=== PATIENT | female | born 1950 | race Two or more races ===

== ENCOUNTER 2017-06-28 22:48 | Emergency (ER) | payer OTHER ==
[2017-06-28 22:56] VITALS: BP 135/74
--- NOTE | 2017-06-28 23:03 | PHYS DOC ---
Past Medical History Past Medical History: No Pertinent History Past Surgical History: No Surgical History Alcohol Use: Rarely Drug Use: None Adult General Chief Complaint Chief Complaint: LACERATION/AVULSION HPI HPI Patient is a 67 year old female who presents with left thumb laceration. Patient states through family members she was cutting a roaster and cut herself accidentally. Patient is right-handed. Review of Systems Review of Systems Constitutional: Denies fever or chills [] Musculoskeletal: Denies back pain or joint pain [] Integument: left thumb laceration Neurologic: Denies headache, focal weakness or sensory changes [] All other systems were reviewed and found to be within normal limits, except as documented in this note. Current Medications Current Medications Current Medications Medications (Trade) Dose Ordered Sig/Lyndon Start Time Stop Time Status Last Admin Dose Admin Diphtheria/ Tetanus/Acell Pertussis (Boostrix) 0.5 ml ONCE ONCE 06/28/17 23:45 06/28/17 23:46 UNV Lidocaine/ Epinephrine (Xylocaine 1%-Epi 1:100,000) 20 ml 1X ONCE 06/28/17 23:15 06/28/17 23:16 DC 06/28/17 23:15 20 ML Allergies Allergies Allergies Coded Allergies Type Severity Reaction Last Updated Verified No Known Drug Allergies 06/28/17 No Physical Exam Physical Exam Constitutional: Well developed, well nourished, no acute distress, non-toxic appearance. [] Skin: Warm, left lateral thumb has a laceration approximately 3 cm long along the PIP joint. There is no obvious tendon involvement. Full range of motion to the left thumb including flexion and extension of the PIP and DIP joints. +2 left radial pulse. Adequate radial sensation to the left thumb. Cap refill less than 2 seconds the left thumb. Back: No tenderness, no CVA tenderness. [] Extremities: No tenderness, no cyanosis, no clubbing, ROM intact, no edema. [] Neurologic: Alert and oriented X 3, normal motor function, normal sensory function, no focal deficits noted. [] Psychologic: Affect normal, judgement normal, mood normal. [] Current Patient Data Vital Signs Vital Signs Date Time Temp Pulse Resp B/P (MAP) Pulse Ox O2 Delivery O2 Flow Rate FiO2 06/28/17 22:56 97.9 80 18 97 Room Air 97.9 EKG EKG [] Radiology/Procedures Radiology/Procedures Indication: Left thumb laceration Procedure: The patient was placed in the appropriate position and anesthesia around the laceration was 1% buffered lidocaine with epinephrine to help stop the bleeding, the laceration was explored for foreign objects once the bleeding had stopped, no foreign object was found. The area was cleaned with 200 ML of normal saline and Betadine. The laceration was closed with 6 interrupted sutures using 4. 0 Ethilon. The wound was covered with nonstick dressing. Total repaired wound length: Approximately 3 cm Other Items: none The patient tolerated the procedure well Complications: none Course & Med Decision Making Course & Med Decision Making Pertinent Labs and Imaging studies reviewed. (See chart for details) Patient has left thumb laceration that was closed by me as noted in procedures. Tetanus updated. Provided wound care instructions as well as return precautions. Left thumb x-rays interpreted by Dr. Badillo were negative for any acute findings. Dragon Disclaimer Dragon Disclaimer This electronic medical record was generated, in whole or in part, using a voice recognition dictation system. Departure Departure Impression: Primary Impression: Laceration of left thumb Disposition: HOME, SELF-CARE Condition: STABLE Patient Instructions: Laceration Care, Adult Additional Instructions: You were seen for left finger laceration. Keep the area clean and dry. Apply Neosporin to the area twice a day. Monitor the area for signs and symptoms of infection including increased redness warmth or drainage from the return to the ED if they occur. Follow-up with your doctor in 7-10 days or the emergency room for suture removal. Scripts Neomy Sulf/Bacitrac Zn/Poly (NEOSPORIN OINTMENT) 28.3 Gm Oint...g. 1 APPLIC TP BID, #1 MISC Prov: SAURABH WORTHY APRN 06/28/17 Tramadol Hcl (ULTRAM) 50 Mg Tablet 1 TAB PO Q6HRS, #30 TAB Prov: SAURABH WORTHY APRN 06/28/17 Cephalexin (CEPHALEXIN) 500 Mg Tablet 1 TAB PO QID, #40 TAB Prov: SAURABH WORTHY APRN 06/28/17 Problem Qualifiers Primary Impression: Laceration of left thumb Encounter type: initial encounter Damage to nail status: without damage Foreign body presence: unspecified Qualified Codes: S61.012A - Laceration without foreign body of left thumb without damage to nail, initial encounter SAURABH WORTHY APRN Jun 28, 2017 23:03
[2017-06-28] MEDS ORDERED: LIDOCAINE 1%/EPI 1:100,000 20 ML VIAL. INJ ONE (23:15)
[2017-06-28] MEDS ORDERED: NEOM28.32 TP (23:33)
[2017-06-28] MEDS ORDERED: CEPH500T PO (23:33)
[2017-06-28] MEDS ORDERED: TRAM-48 PO (23:33)
[2017-06-28] MEDS ORDERED: DIPHTH,PERTUSS(ACELL),TET TOX 0.5 ML DISP.SYRIN. VAX IM ONE (23:45)
--- NOTE | 2017-06-29 10:14 | RAD ---
Left thumb, 3 views, 06/28/2017: History: Thumb laceration There is a small cortical lucency along the dorsal aspect of the proximal end of the proximal phalanx suggesting a small fracture. An overlying soft tissue shadow is less likely. No major fracture line extending across the width of the bone is seen. No other bony abnormality is detected. IMPRESSION: Probable small nondisplaced cortical fracture involving the proximal end of the proximal phalanx.
== END 2017-06-28 23:52 | disposition home or self-care (01) ==
LOC: ER 22:48
DX: S61.012A Laceration without foreign body of left thumb without damage to nail, initial encounter (principal); Y28.8XXA Contact with other sharp object, undetermined intent, initial encounter; Y93.89 Activity, other specified; Y99.8 Other external cause status; Y92.89 Other specified places as the place of occurrence of the external cause
CPT/HCPCS: 12002; 73140; 90471; 90715; 99284; J3490

== ENCOUNTER 2020-09-03 23:55 | Emergency (ER) | payer OTHER ==
[~2020-09-03] VITALS: Ht 160 cm; Wt 72.5 kg
[~2020-09-03 23:55] MED LIST: CEPH500T PO; NEOM28.32 TP; TRAM-48 PO
--- NOTE | 2020-09-04 01:05 | RAD ---
PQRS Compliance Statement: One or more of the following individualized dose reduction techniques were utilized for this examinat ion: 1. Automated exposure control 2. Adjustment of the mA and/or kV according to patient size 3. Use of iterative reconstruction technique CT MAXILLOFACIAL WITHOUT CONTRAST 09/04/2020 12:39 AM Indication: Right facial swelling COMPARISON: None available. TECHNIQUE: Multiple axial CT images of the maxilla facial structures were obtained without intravenou s contrast. Coronal and sagittal reformats are provided. FINDINGS: Visualized portions of the brain parenchyma are normal. Orbits are normal in appearance. Globes are s pherical and contour. No intraconal or extraconal soft tissue mass is identified. Is mild mucosal thi ckening of ethmoid air cells. There is a small mucus retention cyst in the left maxillary sinus. Mild mucosal thickening of the right maxillary sinus. Nasal septum is predominantly midline. Ostiomeatal units are widely patent. No osseous erosions are identified. Mild mucosal thickening of the sphenoid sinuses. Temporomandibular joints are normal in appearance. Parotid and submandibular glands are norm al in appearance. Hot Die Press Feeder space is intact. And oral cavity and sublingual space are intact. No pat hologically enlarged cervical lymph nodes. No significant skin thickening or subcutaneous edema. No a bscess is identified. IMPRESSION: Mild mucosal plantar changes of the paranasal sinuses. No air fluid levels or osseous erosion. Needle septum is midline. Ostiomeatal units are patent. No significant subcutaneous edema or facial abscess. Electronically signed by: Amparo Kelley MD (09/04/2020 1:02 AM) [facility]
--- NOTE | 2020-09-04 01:18 | ED.ADGEN ---
Past Medical History Past Medical History: No Pertinent History Past Surgical History: Hip Replacement, Other Additional Past Surgical Histo: R HIP REPLACEMENT (MANY YEARS AGO) Smoking Status: Never Smoker Alcohol Use: Rarely Drug Use: None General Adult EDM: Chief Complaint: DENTAL PROBLEM HPI: HPI: Patient is a 70-year-old female who presents to the emergency room complaining of right cheek swelling and pain. She states this started 2 days ago and has some erythema. She denies any kind of dental pain. She has not had any kind of fevers. She does not have any difficulty talking or chewing. She states the pain has progressively gotten worse. She has never had anything like this previously. She denies any, earache. She has not been ill recently. Review of Systems: Review of Systems: Complete ROS is negative unless otherwise documented in HPI Allergies: Allergies: Allergies Coded Allergies Type Severity Reaction Last Updated Verified No Known Drug Allergies 06/28/17 No Physical Exam: PE: General: Awake, alert, NAD. Well Nourished, well hydrated. Cooperative HEENT: Atraumatic, EOMI, PERRL, airway patent, moist oral mucosa, right cheek: 3x3 cm area of swelling with tenderness, mild erythema, no dental cavities or swelling Neck: Supple, trachea midline Respiratory: CTA bilaterally, normal effort, no wheezing/crackles CV: RRR, no murmur, cap refill <2 GI: Soft, nondistended, nontender, no masses MSK: No obvious deformities Skin: Warm, dry, intact Neuro: A&O x3, speech NL, sensory and motor grossly intact, no focal deficits Psych: Normal affect, normal mood, not suicidal or homicidal Current Patient Data: Vital Signs: Vital Signs Date Time Temp Pulse Resp B/P (MAP) Pulse Ox O2 Delivery O2 Flow Rate FiO2 09/04/20 00:05 97.3 73 20 146/65 (92) 98 Room Air 97.3 EKG: EKG: [] Heart Score: Risk Factors: Risk Factors: DM, Current or recent (<one month) smoker, HTN, HLP, family history of CAD, obesity. Risk Scores: Score 0 - 3: 2.5% MACE over next 6 weeks - Discharge Home Score 4 - 6: 20.3% MACE over next 6 weeks - Admit for Clinical Observation Score 7 - 10: 72.7% MACE over next 6 weeks - Early Invasive Strategies Radiology/Procedures: Radiology/Procedures: [] Course & Med Decision Making: Course & Med Decision Making Pertinent Labs and Imaging studies reviewed. (See chart for details) Patient 70-year-old female presents to the emergency room with some erythema and swelling to the right cheek. This does not appear to be dental. Is likely that she has a salivary gland infection. CT of the face will be ordered to rule out other pathology. CT does not show any other pathology. Exam consistent with sialoadenitis. Will place on Augmentin. Discussed using sour candy to help with pain. Patient's test results and vitals while in the ED were fully reviewed and discussed with the patient. Patient is stable and at this time does not need admission to the hospital. We have discussed strict return precautions and the importance of following up with their Primary Care Physician. Patient stated understanding and was given an opportunity to ask any questions. Patient is in agreement with plan. Dragon Disclaimer: Dragon Disclaimer: This electronic medical record was generated, in whole or in part, using a voice recognition dictation system. Departure Departure Impression: Primary Impression: Sialoadenitis Disposition: 01 DC HOME SELF CARE/HOMELESS Condition: STABLE Referrals: UNKNOWN PCP NAME (PCP) Patient Instructions: Sialadenitis, Extended Version Scripts Amoxicillin/Potassium Clav (AUGMENTIN 875-125 TABLET) 1 Each Tablet 1 TAB PO Q12HR for 7 Days, #14 TAB Prov: ALECIA KUMAR MD 09/04/20 ALECIA KUMAR MD Sep 04, 2020 01:18
[2020-09-04] MEDS ORDERED: AMOX1TAB61 PO (01:23)
[2020-09-04 01:32] VITALS: BP 105/53
== END 2020-09-04 01:32 | disposition home or self-care (01) ==
LOC: ER 23:55
DX: K11.20 Sialoadenitis, unspecified (principal)
CPT/HCPCS: 70486; 99284-25

== ENCOUNTER 2021-12-15 11:54 | Emergency (ER) | payer OTHER ==
[~2021-12-15] VITALS: Ht 162.6 cm; Wt 75.0 kg
[~2021-12-15 11:54] MED LIST changes: +AMOX1TAB61 PO
[2021-12-15] MEDS ORDERED: ASPIRIN CHEWABLE 81 MG TABLET. PO ONE (12:30)
[2021-12-15] MEDS ORDERED: LIDO:MAALOX 1:1 20 ML SINGLE DOSE. SWSW ONE (12:45)
[2021-12-15] MEDS ORDERED: LIDO:MAALOX 1:1 20 ML SINGLE DOSE. ONE (12:46)
[2021-12-15 13:00] LABS: BASO # 0.1 x10^3/uL (0.0-0.2); BASO % 1 % (0-3); EOS # 0.5 x10^3/uL (0.0-0.7); EOS % 6 % (0-3); HEMATOCRIT 42.9 % (36.0-47.0); HEMOGLOBIN 14.3 g/dL (12.0-15.5); LYMPH # 3.6 x10^3/uL (1.0-4.8); LYMPH % 42 % (24-48); MEAN CORPUSCULAR HEMOGLOBIN 29 pg (25-35); MEAN CORPUSCULAR HGB CONC 33 g/dL (31-37); MEAN CORPUSCULAR VOLUME 86 fL (79-100); MONO # 0.6 x10^3/uL (0.0-1.1); MONO % 7 % (0-9); NEUT # 3.8 x10^3/uL (1.8-7.7); NEUT % 44 % (31-73); PLATELET COUNT 277 x10^3/uL (140-400); RED BLOOD COUNT 5.01 x10^6/uL (3.50-5.40); RED CELL DISTRIBUTION WIDTH 12.7 % (11.5-14.5); WHITE BLOOD COUNT 8.6 x10^3/uL (4.0-11.0)
[2021-12-15 13:11] LABS: GFR 54.3; POTASSIUM 4.6 mmol/L (3.5-5.1)
[2021-12-15 13:16] LABS: ALBUMIN 3.9 g/dL (3.4-5.0); TOTAL BILIRUBIN 0.3 mg/dL (0.2-1.0)
--- NOTE | 2021-12-15 13:29 | RAD ---
XR CHEST 1V History: Reason: epigastric pain / Spl. Instructions: / History: Comparison: None. Findings: Mild ill-defined bibasilar opacities. No pleural effusion. No pneumothorax. Normal heart size. Impression: 1. Mild bibasilar ill-defined opacities, most likely atelectasis. If persistent clinical concern, re commend follow-up. Electronically signed by: Josh Rankin DO (12/15/2021 1:26 PM) [id number]
--- NOTE | 2021-12-15 13:52 | EKG ---
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
[2021-12-15] MEDS ORDERED: PANTOPRAZOLE IV PUSH 40 MG VIAL. IVP ONE (14:15)
[2021-12-15 17:13] VITALS: BP 129/72
--- NOTE | 2021-12-15 17:27 | PHYS DOC ---
Past Medical History Past Medical History: No Pertinent History Past Surgical History: Hip Replacement, Other Additional Past Surgical Histo: R HIP REPLACEMENT (MANY YEARS AGO) Smoking Status: Never Smoker Alcohol Use: Rarely Drug Use: None General Adult EDM: Chief Complaint: CHEST PAIN HPI: HPI: Patient is a 71 year old who presents to the emergency department today with c omplaints of epigastric pain. Patient states that about 10 AM she began to have burning epigastric pain. The pain does not radiate. There are no palliative or provocative factors for the pain. She states this 10 out of 10. Has been constant since it began. She denies any associated shortness of breath. She has had some nausea but no vomiting. She denies any diaphoresis. Patient does have a history of GERD/gastritis. Review of Systems: Review of Systems: Constitutional: Denies fever or chills. [] Eyes: Denies change in visual acuity. [] HENT: Denies nasal congestion or sore throat. [] Respiratory: Denies cough or shortness of breath. [] Cardiovascular: Denies yamile. [] GI: Denies vomiting, bloody stools or diarrhea. [] : Denies dysuria. [] Musculoskeletal: Denies back pain or joint pain. [] Integument: Denies rash. [] Neurologic: Denies headache, focal weakness or sensory changes. [] Endocrine: Denies polyuria or polydipsia. [] Lymphatic: Denies swollen glands. [] Psychiatric: Denies depression or anxiety. [] Heart Score: C/O Chest Pain: Yes HEART Score for Chest Pain: HEART Score for Chest Pain Response (Comments) Value History Slighlty/Non-Suspicious 0 ECG Nonspecific Repolarizatio 1 Age > 65 2 Risk Factors No Risk Factors 0 Troponin < Normal Limit 0 Total 3 Risk Factors: Risk Factors: DM, Current or recent (<one month) smoker, HTN, HLP, family history of CAD, obesity. Risk Scores: Score 0 - 3: 2.5% MACE over next 6 weeks - Discharge Home Family History: Family History: Noncontributory Current Medications: Current Medications Medications (Trade) Dose Ordered Sig/Lyndon Start Time Stop Time Status Last Admin Dose Admin Aspirin (Aspirin Chewable) 324 mg 1X ONCE 12/15/21 12:30 12/15/21 12:31 DC 12/15/21 12:35 324 MG Multi-Ingredient Mouthwash/Gargle (Gi Cocktail) 20 ml STK-MED ONCE 12/15/21 12:46 12/15/21 12:47 DC Pantoprazole Sodium (PROTONIX VIAL for IV PUSH) 40 mg 1X ONCE 12/15/21 14:15 12/15/21 14:35 DC 12/15/21 14:21 40 MG Allergies: Allergies: Allergies Coded Allergies Type Severity Reaction Last Updated Verified No Known Drug Allergies 06/28/17 No Physical Exam: PE: Constitutional: Well developed, well nourished, no acute distress, non-toxic appearance. [] HENT: Normocephalic, atraumatic, bilateral external ears normal, oropharynx moist, no oral exudates, nose normal. [] Eyes: PERRLA, EOMI, conjunctiva normal, no discharge. [] Neck: Normal range of motion, no tenderness, supple, no stridor. [] Cardiovascular:Heart rate regular rhythm, no murmur [] Lungs & Thorax: Bilateral breath sounds clear to auscultation [] Abdomen: Bowel sounds normal, soft, no tenderness, no masses, no pulsatile masses. [] Skin: Warm, dry, no erythema, no rash. [] Back: No tenderness, no CVA tenderness. [] Extremities: No tenderness, no cyanosis, no clubbing, ROM intact, no edema. [] Neurologic: Alert and oriented X 3, normal motor function, normal sensory function, no focal deficits noted. [] Psychologic: Affect normal, judgement normal, mood normal. [] Current Patient Data: Labs: Laboratory Tests Test 12/15/21 12:15 12/15/21 15:51 White Blood Count 8.6 x10^3/uL (4.0-11.0) Red Blood Count 5.01 x10^6/uL (3.50-5.40) Hemoglobin 14.3 g/dL (12.0-15.5) Hematocrit 42.9 % (36.0-47.0) Mean Corpuscular Volume 86 fL (79-100) Mean Corpuscular Hemoglobin 29 pg (25-35) Mean Corpuscular Hemoglobin Concent 33 g/dL (31-37) Red Cell Distribution Width 12.7 % (11.5-14.5) Platelet Count 277 x10^3/uL (140-400) Neutrophils (%) (Auto) 44 % (31-73) Lymphocytes (%) (Auto) 42 % (24-48) Monocytes (%) (Auto) 7 % (0-9) Eosinophils (%) (Auto) 6 % (0-3) H Basophils (%) (Auto) 1 % (0-3) Neutrophils # (Auto) 3.8 x10^3/uL (1.8-7.7) Lymphocytes # (Auto) 3.6 x10^3/uL (1.0-4.8) Monocytes # (Auto) 0.6 x10^3/uL (0.0-1.1) Eosinophils # (Auto) 0.5 x10^3/uL (0.0-0.7) Basophils # (Auto) 0.1 x10^3/uL (0.0-0.2) Sodium Level 142 mmol/L (136-145) Potassium Level 4.6 mmol/L (3.5-5.1) Chloride Level 105 mmol/L (98-107) Carbon Dioxide Level 25 mmol/L (21-32) Anion Gap 12 (6-14) Blood Urea Nitrogen 17 mg/dL (7-20) Creatinine 1.0 mg/dL (0.6-1.0) Estimated GFR (Cockcroft-Gault) 54.3 BUN/Creatinine Ratio 17 (6-20) Glucose Level 109 mg/dL (70-99) H Calcium Level 9.0 mg/dL (8.5-10.1) Total Bilirubin 0.3 mg/dL (0.2-1.0) Aspartate Amino Transferase (AST) 24 U/L (15-37) Alanine Aminotransferase (ALT) 26 U/L (14-59) Alkaline Phosphatase 74 U/L (46-116) Troponin I High Sensitivity 6 ng/L (4-50) 9 ng/L (4-50) EC-Slp-V-Type Natriuretic Peptide 39 pg/mL (0-124) Total Protein 8.0 g/dL (6.4-8.2) Albumin 3.9 g/dL (3.4-5.0) Albumin/Globulin Ratio 1.0 (1.0-1.7) Lipase 142 U/L (73-393) Laboratory Tests 12/15/21 12:15 Laboratory Tests 12/15/21 12:15 Vital Signs: Vital Signs Date Time Temp Pulse Resp B/P (MAP) Pulse Ox O2 Delivery O2 Flow Rate FiO2 12/15/21 15:13 68 16 147/65 (92) 96 Room Air 12/15/21 11:57 97.4 97.4 EKG: EKG: EKG shows a normal sinus rhythm with a rate of 72. Intervals and axis are normal. There are inferior Q waves. No evidence of any acute ischemia or infarction. EKG was read interpreted by myself. [] Radiology/Procedures: Radiology/Procedures: PROCEDURE: PORTABLE CHEST 1V XR CHEST 1V History: Reason: epigastric pain / Spl. Instructions: / History: Comparison: None. Findings: Mild ill-defined bibasilar opacities. No pleural effusion. No pneumothorax. Normal heart size. Impression: 1. Mild bibasilar ill-defined opacities, most likely atelectasis. If persistent clinical concern, recommend follow-up. Electronically signed by: Josh Rankin DO (12/15/2021 1:26 PM) [id number] Impression: Acute epigastric pain Course & Med Decision Making: Course & Med Decision Making Patient remained hemodynamically stable in the emergency department. She was evaluated at the bedside with a physical exam. EKG shows no evidence of any acute ischemia or infarction. Basic labs obtained and are unremarkable. Initial troponin was 6 and preet to 9. I did discuss the patient with cardiology they will see her in the office in [address] Sanchez and schedule her for an outpatient stress test. Patient's epigastric pain was treated here in emergency department with a GI cocktail with full resolution of her symptoms. Her heart score is 3. At this time I think it safe we can safely discharge her home and have her follow-up with cardiology as planned. Dragon Disclaimer: Dragon Disclaimer: This electronic medical record was generated, in whole or in part, using a voice recognition dictation system. Departure Departure Impression: Primary Impression: Epigastric pain Disposition: HOME / SELF CARE / HOMELESS Condition: IMPROVED Referrals: TRUDY GUIDRY MD (PCP) KEN SANCHEZ MD Please follow with Dr. Sanchez on November at 8:30. Scripts Pantoprazole Sodium (PROTONIX) 20 Mg Tablet. 1 TAB PO DAILY, #30 TAB Prov: OLIMPIA GARCIA MD 12/15/21 OLIMPIA GARCIA MD December 15, 2021 17:27
[2021-12-15] MEDS ORDERED: PANT20TA2 PO (17:41)
== END 2021-12-15 17:43 | disposition home or self-care (01) ==
LOC: ER 11:54
DX: R10.13 Epigastric pain (principal); R11.0 Nausea
CPT/HCPCS: 36415; 71045; 80053; 83690; 83880; 84484; 85025; 93005; 96374; 99285; C9113